=== PATIENT | female | born 2000 | race Caucasian/White ===

== ENCOUNTER 2020-07-18 11:02 | Day surgery (SDC) | payer BC, OTHER ==
[2020-07-13 09:36] VITALS: BMI 21.9
[~2020-07-18 11:02] MED LIST: CEFAZOLIN 1 GM/D5W 1 GM/50 ML BAG IVPB ONE
[2020-07-18] MEDS ORDERED: BUPIVACAINE HCL/PF 0.25% (2.5MG/ML) 10 ML VIAL ONE (11:39)
[2020-07-18] MEDS ORDERED: LIDOCAINE HCL 2% (20ML MULTI-DOSE VIAL) ONE (11:41)
[2020-07-18] MEDS ORDERED: MIDAZOLAM HCL 2 MG/2 ML SINGLE DOSE VIAL ONE (11:41)
[2020-07-18] MEDS ORDERED: DEXAMETHASONE SOD PHOSPHATE 4 MG/1 ML VIAL ONE ×3 (11:41→12:57)
[2020-07-18] MEDS ORDERED: PROPOFOL 20 ML ONE ×2 (11:47)
[2020-07-18] MEDS ORDERED: SUCCINYLCHOLINE CHLORIDE 200 MG/10 ML SYRINGE ONE (11:48)
[2020-07-18] MEDS ORDERED: ONDANSETRON 4 MG/2 ML VIAL ONE (11:49)
[2020-07-18] MEDS ORDERED: ceFAZolin SODIUM 1 GM VIAL ONE (11:49)
[2020-07-18 13:39] VITALS: TEMP 98.6
[2020-07-18 14:24] VITALS: BP 115/70; PULSE 94
[2020-07-18] MEDS ORDERED: oxyCODONE HCL 5 MG TABLET PO PRN (14:50)
[2020-07-18] MEDS ORDERED: ONDANSETRON 4 MG/2 ML VIAL IVPUSH PRN (14:50)
[2020-07-18] MEDS ORDERED: LACTATED RINGERS SOLUTION 1,000 ML IV SCH (15:00)
== END 2020-07-18 14:10 | disposition home or self-care (01) ==
LOC: FASU 11:02
PROVIDERS: ATTEND Podiatrist
PROC: 0QSN04Z Reposition Right Metatarsal with Internal Fixation Device, Open Approach (ICD-10-PCS; principal; 2020-07-18 12:15)
DX: M21.621 Bunionette of right foot (principal); M71.571 Other bursitis, not elsewhere classified, right ankle and foot
CPT/HCPCS: 84703; 88304-TC; 88311-TC